=== PATIENT | male | born 1975 | race Caucasian/White ===

== ENCOUNTER 2022-03-18 14:19 | Emergency (ER) | payer OTHER ==
[2022-03-18 14:36] VITALS: BP 145/89; PULSE 80; TEMP 98.5; BMI 30.5
[2022-03-18] MEDS ORDERED: KETOROLAC TROMETHAMINE 30 MG/1 ML VIAL IM ONE (17:25)
[2022-03-18 17:49] LABS: PH,URINE 8.5 (5.0-8.0); URINE APPEARANCE TURBID; URINE BILIRUBIN NEGATIVE (NEGATIVE); URINE COLOR YELLOW; URINE GLUCOSE (UA) NEGATIVE (NEGATIVE); URINE KETONE NEGATIVE (NEGATIVE); URINE LEUK ESTERASE NEGATIVE (NEGATIVE); URINE NITRITE NEGATIVE (NEGATIVE); URINE PROTEIN NEGATIVE (NEGATIVE)
== END 2022-03-18 19:05 | disposition home or self-care (01) ==
LOC: JER 14:19
PROC: 3E0233Z Introduction of Anti-inflammatory into Muscle, Percutaneous Approach (ICD-10-PCS; principal; 2022-03-18)
DX: M54.42 Lumbago with sciatica, left side (principal)
CPT/HCPCS: 81003; 87086; 99284-25